=== PATIENT | male | born 1960 | race Caucasian/White ===

== ENCOUNTER 2022-01-04 21:30 | Emergency (ER) | payer OTHER, SELFPAY ==
[2022-01-04 22:31] VITALS: BP 132/85; PULSE 56; RESP 17; TEMP 36.8; O2SAT 99; BMI 22.2
--- NOTE | 2022-01-05 01:59 | ED.SKABFB ---
HPI - Skin/Abscess/Foreign Bdy General Chief complaint: Skin/Abscess/Foreign Body Stated complaint: Right foot swollen Time Seen by Provider: 01/05/22 01:55 Source: patient Mode of arrival: Ambulatory History of Present Illness HPI narrative: Patient here for right foot redness and swelling. Has minimal pain. Patient states he may have been bitten by an insect. He is staying at a friend's house. There are animals in the home. He noted some itching yesterday and scratched at it most of the day. Today noticed swelling to the foot. Minimal pain. There remains a red erythematous patch below the right lateral malleolus. Walking in the hallway without any difficulty. Wearing sandals. Wearing shorts Related Data Previous Rx's Medication Instructions Recorded doxycycline monohydrate 100 mg 100 mg PO BID #14 caps 01/05/22 capsule Allergies Allergy/AdvReac Type Severity Reaction Status Date / Time No Known Drug Allergies Allergy Verified 01/04/22 22:37 Review of Systems Review of Systems Narrative: GENERAL: Denies chills, fatigue, malaise, fever, sweats. HEENT: Denies sinus pain, ear pain, sore throat RESPIRATORY: Denies dyspnea, cough CARDIOVASCULAR: Denies chest pain, palpitations GASTROINTESTINAL: Denies nausea, vomiting, abdominal pain : Denies dysuria, frequency, hematuria MUSCULOSKELETAL: denies muscle or bony pain SKIN: Denies rash, skin lesions, positive for erythema NEUROLOGIC: Denies weakness, numbness ROS Unobtainable: All systems reviewed & are unremarkable except as noted in HPI and below Patient History Social History Smoking Status: Never smoker Smoking Status: Never smoker alcohol intake frequency: 0-2 drinks per day Substance Use Type: does not use Exam Narrative Exam Narrative: GENERAL: in no distress, not toxic not dyspneic HEAD: Normocephalic. EYES: Pupils equal round No scleral icterus. EXTREMITIES: No gross deformities. Examination right lower extremity. Need to toes exposed. Nontender knee and ankle. Able flex extend at the ankle without difficulty. Mild tenderness to the inferior right lateral malleolus with 2 cm area of erythema but without induration. No drainage. No palpable abscess. Dorsum of the foot is edematous. However foot is warm soft and pink with strong pedal pulse. Able to bear weight walk in the [place] without any difficulty. NEURO: AOx4. SKIN: Warm and dry PSYCH: Not anxious, is cooperative Initial Vital Signs Initial Vital Signs: Vital Signs Temperature 98.2 F 01/04/22 22:31 Pulse Rate 56 L 01/04/22 22:31 Respiratory Rate 17 01/04/22 22:31 Blood Pressure 132/85 01/04/22 22:31 Pulse Oximetry 99 01/04/22 22:31 Oxygen Delivery Method 01/04/22 22:31 Course Course Course Narrative: No new issues during course of stay Orders Ordered: Discontinued Medications Doxycycline Hyclate (Doxycycline Hyclate 100 Mg Tablet) 100 mg PO NOW ONE Stop: 01/05/22 02:00 Last Admin: 01/05/22 02:09 Dose: 100 mg Documented By: BRAVO Reevaluation(s) Reevaluation #1: Reviewed with patient likely cellulitis from insect bite. At this time no blood work or imaging indicated. No fall or injury. No fever. Not toxic. Agrees with antibiotics to start tonight return precautions reviewed with him Time: 02:07 Vital Signs Vital signs: Vital Signs - 8 hr 01/04/22 22:31 Temperature 98.2 F Pulse Rate 56 L Respiratory Rate 17 Blood Pressure 132/85 Pulse Oximetry 99 Oxygen Delivery Method Room Air MDM - Skin/Abscess/Foreign Bdy Differential Diagnosis Differential diagnosis: Likely abscess of skin or subcutaneous tissue, cellulitis and insect bites MDM Narrative Medical decision making narrative: Appropriate for discharge home. No imaging or blood work indicated. Nontoxic. No known injury. Likely infected insect bite. Staying in a new environment that has pets and animals. No signs of compartment syndrome or septic joint. Antibiotics started. Return precautions reviewed with him Discharge Plan Departure Patient Disposition: Home Clinical Impression: Cellulitis Instructions: DI for Cellulitis -- Adult Activity Restrictions/Additional Instructions: See family doctor this week for re-evaluation of your foot. Call provided primary care referral phone number to establish family doctor. Call [phone]. Prescription for antibiotics has been provided for you. Be sure to continue that today. Patient has a complete the course of antibiotics. Keep foot elevated when at rest to reduce the swelling. Prescriptions: New doxycycline monohydrate 100 mg capsule 100 mg PO BID Qty: 14 0RF Referrals: Miscellaneous,[facility] [Primary Care Provider] - Visit Report Forms: Patient Portal/API
[2022-01-05] MEDS: DOXYCYCLINE HYCLATE 100 MG TABLET PO (02:09)
== END 2022-01-05 02:13 | disposition home or self-care (01) ==
PROVIDERS: Emergency Provider Emergency Medicine
DX: L03.115 Cellulitis of right lower limb (principal)
CPT/HCPCS: 99283